=== PATIENT | female | born 1930 | race Caucasian/White ===

== ENCOUNTER 2016-12-14 14:42 | Inpatient (IN) | payer MEDICARE, OTHER ==
--- NOTE | 2016-12-14 15:28 | RAD ---
EXAM DESCRIPTION: XR CHEST 2 VIEWS CLINICAL HISTORY: FEVER COMPARISON: None Available. TECHNIQUE: Two-views of the chest. FINDINGS: Normal heart size. Atherosclerotic aorta. Patchy infiltrate in the right lung base laterally along the costophrenic angle. Minimal patchy opacity in the retrocardiac left lower lobe as well. No large effusions. Mild hyperinflation IMPRESSION: Bilateral patchy small infiltrates in the lung bases along of the right lateral lower lobe and retrocardiac left lower lobe Electronically signed by: Aly Flores MD 12/14/2016 15:27
--- NOTE | 2016-12-14 17:41 | HP ---
SUPERVISING PHYSICIAN: Sly Álvarez M.D. CHIEF COMPLAINT: Productive cough, shortness of breath and diarrhea. HISTORY OF PRESENT ILLNESS: Ms. Bray is an 86 year-old female patient that was seen in the clinic this past weekend for a cough. She was noted to have a positive Strep screen and was sent home with Amoxicillin. Three days after starting Amoxicillin she developed diarrhea and stopped her Amoxicillin. Her symptoms progressively worsened until she presented back to the clinic today and was found to have leukocytosis with a white count of 13.5 with a left shift. Chest x-ray per radiology interpretation indicated bilateral patchy infiltrates in the lung bases on the right lateral lower lobe and retrocardiac left lower lobe. The patient was showing saturations 93% on room air at the clinic but was having a more productive cough and increasing dyspnea with exertion. Given the patient's previous treatment for Strep throat having failed to continue with treatment plan and having failed outpatient treatment plan with radiographic studies indicating possible bilateral pneumonia and a leukocytosis with a left shift. The patient was directly admitted for treatment and evaluation. She was admitted in stable condition for bilateral pneumonia likely community acquired complicated by diarrhea and dehydration. PAST MEDICAL HISTORY: 1. Hypertension. 2. Multiple skin cancers. 3. Depression and anxiety. 4. Recent positive Streptococcal pharyngitis failing to complete treatment. 5. Mild dementia. PAST SURGICAL HISTORY: 1. Appendectomy. 2. Cataracts bilateral. CURRENT MEDICATIONS: No chronic home medications listed. Only medication is the recent Amoxicillin 500 mg every 12 hours for 10 days, completed only 4 days of therapy. ALLERGIES: NO KNOWN DRUG ALLERGIES. FAMILY HISTORY: Significant for father from myocardial infarction. Mother is from pancreatic cancer. SOCIAL HISTORY: The patient is a retired homemaker. She is . She lives in [place]. She smoked at a young age, but quit smoking in 1959 and she admits that she drinks alcohol on a social basis, mainly wine and Margaritas with meals. REVIEW OF SYSTEMS: CONSTITUTIONAL: Notes some chills but denies any fever. She does have some fatigue and has noted some unintentional weight loss over the last week of approximately 5 pounds since diarrhea started. HEENT: As noted in the History of Present Illness, positive for Streptococcal pharyngitis treated with Amoxicillin. Denies any nasal congestion or headaches. RESPIRATORY: Positive for productive cough and some exertional dyspnea. CARDIOVASCULAR: Denies any chest pain, palpitation or syncopal episodes. GASTROINTESTINAL: Negative for any constipation but does have currently diarrhea after starting Amoxicillin but has no nausea or vomiting. GENITOURINARY: Denies any dysuria, increased frequency or other urinary symptoms. NEUROLOGIC: Denies any ataxia, headaches, any weaknesses. No syncopal episodes. Does have a history of mild dementia. PHYSICAL EXAMINATION: VITAL SIGNS: In the clinic, temperature 98.7, pulse 93, blood pressure 116/70, respirations 18, pulse 93, O2 sat showing 93% on room air at rest. Admission weight 130 pounds. GENERAL: The patient appears well nourished. She does appear ill-appearing but is in no acute distress and is alert and oriented. HEENT: Tympanic membranes are clear bilaterally. Oropharynx is pink but posterior pharynx is notably erythematous with a strawberry-appearing tongue posteriorly, but there are no lesions noted. Tonsils appear within normal limits. NECK: No jugular venous distention. There is bilateral cervical adenopathy noted on palpation. CHEST: Lungs are diminished towards the bases bilaterally with just some faint coarse breath sounds bilaterally, but no rhonchi or wheezing or rales are noted. CARDIOVASCULAR: Regular rate and rhythm without appreciable murmurs, gallops, or rubs. ABDOMEN: Soft with just some mild tenderness towards the left lower quadrant, but no rebound tenderness. Bowel sounds are present. EXTREMITIES: No clubbing, cyanosis or edema. NEUROLOGIC: She is alert and oriented times three. Cranial nerves II-XII are grossly intact. Facial features are symmetrical. Extraocular movements are within normal limits. There is no nystagmus noted. There are no detectable neurological or motor deficits. The patient was ambulatory with no obvious ataxia. LABORATORY: White count showed 13.6, hemoglobin and hematocrit 13.3 and 44.1, platelet count 145,000. Differential did show a left shift. Chemistries show sodium 134, potassium 3.0, chloride 97, carbon dioxide 29, BUN 8, creatinine 0.65, glucose 114. Liver function showed all to be within normal limits, except for just some mildly elevated total bilirubin. Urinalysis showed positive blood and a small amount of leukocyte esterase on dipstick with microscopic exam revealing 10 to 20 WBCs, 10 to 20 RBCs, 3 to 5 epithelials and 2+ bacteria. Lactic acid is pending. Stool cultures, occult bloods are pending as well as stool leukocytes. MICROBIOLOGY: Blood cultures are pending times 2. Urine culture is pending. Sputum culture pending. RADIOLOGY: Chest x-ray two view per radiology interpretation in the clinic prior to admission showed bilateral patchy infiltrates in the lung bases along on the right lower lobe as well as the retrocardiac left lower lobe. ASSESSMENT: 1. Acute bilateral pneumonia community acquired having failed treatment plan for a Streptococcal pharyngitis with being treated with Amoxicillin. 2. Leukocytosis likely secondary to underlying bilateral pneumonia with left shift noted. 3. Recent Streptococcal pharyngitis treated with Amoxicillin failing to continue with treatment plan. 4. Persistent diarrhea possibly secondary to antibiotic therapy versus viral gastroenteritis versus complications from recent Streptococcal pharyngitis. 5. Mild electrolyte imbalance with mild hypokalemia and mild hyponatremia likely secondary to persistent diarrhea. 6. Moderate dehydration secondary to persistent diarrhea. 7. Hypertension. 8. History of depression and anxiety. 9. Urinary tract infection with cultures pending. PLAN: The patient was directly admitted to the hospital from the clinic with concerning worsening bilateral pneumonia community acquired having recently been treated for a positive Streptococcal pharyngitis but failing to respond to treatment plan after failing to continue with full treatment course. Will continue antibiotic therapy at this point to be parenterally with Rocephin and Azithromycin. Treatment for the pharyngitis as well as urinary tract infection should be good coverage with Azithromycin and Rocephin, therefore will not add any additional medications. Will plan to do stool studies to rule out possible Clostridium Difficile and also include occult blood. I will start her on IV fluids to help with the dehydration. She will be started on normal saline with 40 of potassium to run at 80 an hour. She will be provided DuoNeb breathing treatments q.i.d. with p.r.n. Albuterol as well as aggressive pulmonary hygiene , including incentive spirometry. She is not demonstrating and wheezing and has no significant history of chronic obstructive pulmonary disease, therefore we will not start any corticosteroids at this point. Anticipate length of stay to be 2 to 3 days pending reevaluation with radiographic studies in the morning and stool studies along with repeat CBC and BMP. Will continue to follow the patient closely until discharge at which time the patient will need close clinical followup in the outpatient setting with her primary care physician at [facility]. #[id number] [facility]
[2016-12-14] MEDS ORDERED: SODIUM CHLORIDE 0.9% (FLUSH) 10 ML SYG IV PRN (18:02)
[2016-12-14] MEDS ORDERED: ALBUTEROL SULFATE 2.5 MG/3 ML VIAL NEB PRN (18:02)
[2016-12-14] MEDS ORDERED: ACETAMINOPHEN 325 MG TAB PO PRN (18:02)
[2016-12-14] MEDS ORDERED: MAGNESIUM HYDROXIDE 30 ML UD PO PRN (18:02)
[2016-12-14] MEDS ORDERED: IV SET AND CAP CHANGE INJ INJ SCH (18:30)
[2016-12-14] MEDS ORDERED: AZITHROMYCIN IV 500 MG in SODIUM CHLORIDE 0.9% 250ML 250 ML IVPB SCH (18:30)
[2016-12-14] MEDS ORDERED: SODIUM CHL 0.9% 50ML MIN-BAG+ 50 ML IVPB ONE (18:55)
[2016-12-14] MEDS ORDERED: cefTRIAXone SODIUM 1 GM VIAL ONE (18:56)
[2016-12-14] MEDS: KCL 40MEQ/NS 1,000 ML IVS PRN (18:58)
[2016-12-14] MEDS: cefTRIAXone SODIUM 1 GM in SODIUM CHL 0.9% 50ML MIN-BAG+ 50 ML IVPB SCH (18:59)
[2016-12-14] MEDS ORDERED: SODIUM CHLORIDE 0.9% 250ML 250 ML ONE (20:11)
[2016-12-14] MEDS ORDERED: AZITHROMYCIN IV 500 MG VIAL IVPB ONE (20:12)
--- NOTE | 2016-12-14 20:43 | PCM.CORE ---
Physician DVT/VTE - Nurse DVT Assessment & Total Each Risk Factor Represents 3 Points: Age over 75 years Each Risk Factor is 1 Point: Serious Lung disease (pnemonia <1month, COPD, emphysema,etc) DVT Assessment Score: 4 - 5 or more Very High Risk Treatments: Early Ambulation *, Sequential Compression Device Pharmacological: Enoxaparin 40mg SQ Daily
[2016-12-14] MEDS: ENOXAPARIN SODIUM 40 MG/0.4 ML SYG SUBCU SCH (21:38)
--- NOTE | 2016-12-15 07:28 | RAD ---
Clinical History : Pneumonia , MAIN Exam : PA and lateral views of the chest 12/15/2016 7:00 AM LANGUAGE TEACHER Comparisons : PA and lateral views of the chest Findings : There is stable retrocardiac airspace disease with small bilateral pleural effusions. There are emphysematous changes throughout the lungs bilaterally. The heart is stable in size. The mediastinal contours are normal in appearance. There are vascular calcifications along the aortic arch. The thoracic spine is age appropriate. The shoulders are unremarkable. Limited evaluation of the upper abdomen demonstrates no gross abnormalities. Impression: 1. Bilateral pleural effusions with retrocardiac airspace disease. 2. Stable emphysema.. Electronically signed by: Stewart Rosas MD 12/15/2016 7:28 AM LANGUAGE TEACHER
[2016-12-15] MEDS: IPRATROPIUM/ALBUTEROL 3 ML VIAL NEB SCH ×4 (09:10→22:50)
[2016-12-15] MEDS: KCL 40MEQ/NS 1,000 ML IVS PRN (15:21)
[2016-12-15] MEDS ORDERED: SODIUM CHL 0.9% 50ML MIN-BAG+ 50 ML IVPB ONE (17:07)
[2016-12-15] MEDS ORDERED: cefTRIAXone SODIUM 1 GM VIAL ONE (17:07)
[2016-12-15] MEDS: cefTRIAXone SODIUM 1 GM in SODIUM CHL 0.9% 50ML MIN-BAG+ 50 ML IVPB SCH (19:06)
[2016-12-15] MEDS ORDERED: SODIUM CHLORIDE 0.9% 250ML 250 ML ONE (19:56)
[2016-12-15] MEDS ORDERED: AZITHROMYCIN IV 500 MG VIAL IVPB ONE (19:57)
[2016-12-15] MEDS ORDERED: AZITHROMYCIN IV 500 MG in SODIUM CHLORIDE 0.9% 250ML 250 ML IVPB SCH (20:00)
[2016-12-15] MEDS: SODIUM CHLORIDE 0.9% (FLUSH) 10 ML SYG IV SCH (20:30)
[2016-12-15] MEDS: ENOXAPARIN SODIUM 40 MG/0.4 ML SYG SUBCU SCH (20:54)
--- NOTE | 2016-12-15 21:32 | PN ---
DATE: 12/15/16 SUPERVISING PHYSICIAN: Sly Álvarez M.D. SUBJECTIVE: The patient is doing well this morning. She is visiting with friends and family. Appetite has been good. She still has a cough that is productive, but has less shortness of breath. She remains afebrile. OBJECTIVE: VITAL SIGNS: T max 97.9, pulse 72, blood pressure 120/66, respirations 18, O2 sat showing 95% on nasal cannula at rest on 1 liter. I's and O's show a positive balance of 585 with 1485 in, 900 out. Weight 60.3 kg. CHEST: Lungs continue to be diminished towards the bases with continued coarse breath sounds mostly on the right compared to the left, but there is no wheezing or rales noted. HEART: Regular rate and rhythm. ABDOMEN: Soft, non- tender. Positive bowel sounds. EXTREMITIES: No clubbing, cyanosis or edema. NEUROLOGIC: She is alert and oriented times three. LABORATORY: White count now has normalized at 7.5 from admission of 13.6, hemoglobin 11.6, hematocrit 34.3, platelet count 124,000. Differential now shows to be within normal limits. Chemistries show a mildly low potassium at 3.1 improved from admission with BUN 8, creatinine 0.53, glucose 92, calcium 7.9. MICROBIOLOGY: Sputum culture preliminary shows need for re-incubation. Blood cultures remain negative at 24 hours. Stool studies to include Clostridium Difficile toxin A and B was negative. Stool culture is pending and stool leukocytes showed positive for leukocytes. Urine culture preliminary shows a presumptive Escherichia coli with a colony count between 40,000 to 50,000. RADIOLOGY: Chest x-ray shows bilateral pleural effusions with a retrocardiac airspace disease and stable emphysema per radiology interpretation. ASSESSMENT: 1. Acute bilateral pneumonia community acquired having failed treatment plan after Streptococcal pharyngitis infection having been treated with Amoxicillin showing radiographic studies for concerns for pneumonia bilaterally. 2. Leukocytosis likely secondary to underlying bilateral pneumonia with a left shift noted, now resolved after treatment started with Rocephin and Azithromycin. 3. Recent Streptococcus pharyngitis having been treated with Amoxicillin failing to continue with treatment plan. 4. Persistent diarrhea most likely secondary to early antibiotic therapy versus a viral gastroenteritis with stool studies showing positive leukocytes but negative for Clostridium Difficile and stool cultures are currently pending with the patient having a recent Streptococcal pharyngitis infection. 5. Mild electrolyte imbalance with continued mild hypokalemia although improved after IV therapy with resolution of the hyponatremia most likely secondary to her persistent diarrhea. 6. Moderate dehydration secondary to persistent diarrhea. 7. Hypertension. 8. History of depression and anxiety. 9. Urinary tract infection with culture results showing preliminary presumptive Escherichia coli with the patient being on Rocephin and Azithromycin. PLAN: Will continue with antibiotic therapy to include Rocephin and Azithromycin for treatment of underlying pneumonia as well as her pharyngitis and urinary tract infection awaiting final culture results of both sputum and urine. She is doing clinically better and is taking adequate p.o. fluids, therefore we will go ahead and saline lock her later today. Will continue to monitor her stool cultures. Will continue with aggressive pulmonary hygiene to include DuoNeb treatments and incentive spirometry. Anticipate possible discharge tomorrow. Until then, will continue to monitor the patient closely and treat appropriately. #[id number] [facility]
[2016-12-15 23:33] VITALS: TEMP 98.4
[2016-12-16 03:26] VITALS: BP 169/85
[2016-12-16] MEDS ORDERED: SODIUM CHLORIDE 0.9% 10 ML VIAL IV PRN (07:54)
[2016-12-16] MEDS: IPRATROPIUM/ALBUTEROL 3 ML VIAL NEB SCH (09:15)
[2016-12-16] MEDS: SODIUM CHLORIDE 0.9% (FLUSH) 10 ML SYG IV SCH (09:19)
[2016-12-16] MEDS ORDERED: LISINOPRIL 10 MG TAB PO SCH (09:30)
--- NOTE | 2016-12-16 11:06 | RAD ---
PROCEDURE: Chest,2 Views CLINICAL HISTORY: pneumonia INDICATION: Same as above COMPARISON: December 15, 2016 TECHNIQUE: PA and and lateral chest radiographs were obtained. FINDINGS: Note is again made of small bilateral pleural effusions and presence of mild discoid atelectasis/infiltrate in the right lower lobe of the lung, both findings unchanged There is no pneumothorax The cardiomediastinal silhouette is stable IMPRESSION: Note is again made of small bilateral pleural effusions and presence of mild discoid atelectasis/infiltrate in the right lower lobe of the lung, both findings unchanged Place of interpretation: Teleradiology. Electronically signed by: Luther Lazar MD 12/16/2016 11:06 AM PARTS SALES MANAGER
[2016-12-16 12:45] VITALS: O2SAT 95
--- NOTE | 2016-12-18 11:06 | DS ---
SUPERVISING PHYSICIAN: Sly Álvarez MD DISCHARGE DIAGNOSIS: 1. Acute bilateral pneumonia, community acquired, having failed treatment plan for a Streptococcal pharyngitis having been treated with Amoxicillin with radiographic studies showing concern for pneumonia bilaterally. 2. Leukocytosis, likely secondary to underlying bilateral pneumonia with left shift noted and resolved with treatment that was started with Rocephin and azithromycin. 3. Recent Streptococcal pharyngitis treated with Amoxicillin failing to continue with treatment plan secondary to diarrhea after starting Amoxicillin. 4. Persistent diarrhea, secondary to antibiotic therapy, less likely viral gastroenteritis with stool studies showing only positive leukocytes, but negative for Clostridium difficile and stool cultures showing reduced gilberto with heavy growth of yeast with the patient having been treated for the recent Streptococcal pharyngitis infection. 5. Mild electrolyte imbalance with continued mild hypokalemia, showing improvement with IV therapy with resolution of hyponatremia, likely secondary to her persistent diarrhea. 6. Moderate dehydration secondary to persistent diarrhea. 7. Hypertension. 8. History of depression and anxiety. 9. Urinary tract infection with culture results showing Escherichia coli species that was pansensitive with the patient be on Rocephin since admission. HISTORY OF PRESENT ILLNESS: Ms. Bray is an 86 year-old female patient that was seen in the clinic the weekend before admission for a cough. She was noted to have a positive Strep screen and was sent home with Amoxicillin. Three days after starting Amoxicillin she developed diarrhea and stopped her Amoxicillin. Her symptoms progressively worsened until she presented back to the clinic on the day of admission and was found to have leukocytosis with a white count of 13.5 with a left shift. Chest x-ray per radiology interpretation indicated bilateral patchy infiltrates in the lung bases on the right lateral lower lobe and retrocardiac left lower lobe. The patient was showing saturations 93% on room air at the clinic, but was having a more productive cough and increasing dyspnea with exertion. Given the patient' s previous treatment for Strep throat having failed to continue with treatment plan and having failed outpatient treatment plan with radiographic studies indicating possible bilateral pneumonia and a leukocytosis with a left shift, the patient was directly admitted for treatment and evaluation. She was admitted in stable condition for bilateral pneumonia, likely community acquired , complicated by diarrhea and dehydration. LABORATORY: White count on admission was elevated at 13.6, however, normalized and at time of discharge was 4.7. Hemoglobin and hematocrit stabilized at 11.7 and 35.4 at time of discharge. Platelet count was normal at 144,000. Initially on admission, she did show a left shift. This resolved prior to discharge after initiation of antibiotics. Chemistries on admission did show mild electrolyte derangement with sodium 134, potassium 3.0. Carbon dioxide 29 , BUN 8, creatinine 0.65. Liver functions were all within normal limits, but slightly elevated bilirubin of 1.2. At time of discharge, she did continue to have a mild hypokalemia with potassium 3.2. BUN and creatinine were less than 5 and 0.52 for creatinine. Urine dipstick on admission did show moderate blood , small amount of leukocyte esterase, but microscopic exam revealed 10 to 20 RBCs, WBCs with 2+ bacteria and only 3 to 5 epithelials. MICROBIOLOGY: Flu swab by PCR was negative for both A and B. Sputum cultures completed show normal gilberto at 48 hours. Blood cultures remained negative after four days. Stool workup included C. difficile toxin A and B that was negative. Stool leukocytes did positive leukocytes, but stool cultures showed reduced gilberto with just heavy growth of yeast. RADIOLOGY: Initial chest x-ray on admission showed bilateral patchy small infiltrates in the lung base along the right lower lobe and retrocardiac left lower lobe. Followup x-ray at time of discharge showed again small bilateral pleural effusions with presence of discoid atelectasis infiltrate in the right lower lobe of both lungs, but unchanged. HOSPITAL COURSE: Ms. Bray was noted on 12/14/16 as noted for bilateral pneumonia. She was started on antibiotics that included azithromycin and Rocephin. She was also started on IV fluids for some mild dehydration. She progressed well with breathing treatments and aggressive pulmonary hygiene. She remained stable and was felt well enough to continue in outpatient setting once cultures were all confirmed and antibiotic therapy was appropriately targeted. PLAN: Ms. Bray was discharged to have close clinical followup with her primary care provider, Dr. Kelly, in seven days or sooner. She was instructed to call Dr. Kelly's office to schedule appointment. She was to start new medications on discharge as instructed and encouraged to increase fluids. She was to keep a blood pressure log and to take it with her to Dr. Kelly's office for followup. She was to increase activities physically as tolerated and return to the hospital should she have failure of improvement or worsening of her symptoms. She was discharged in good and stable condition. DISCHARGE MEDICATIONS: 1. Azithromycin 500 mg for 3 days. 2. Guaifenesin 600 mg twice daily. 3. Cefdinir 300 mg twice daily for 5 days. 4. Lisinopril 20 mg daily, #30. 5. Albuterol inhaler 2 puffs inhaled q.4h. as needed. All other medications prior to admission were resumed. #[id number] [facility]
--- NOTE | 2016-12-24 00:18 | RAD ---
Clinical History : Pneumonia , MAIN Exam : PA and lateral views of the chest 12/15/2016 7:00 AM PAINTING SUPERVISOR Comparisons : PA and lateral views of the chest Findings : There is stable retrocardiac airspace disease with small bilateral pleural effusions. There are emphysematous changes throughout the lungs bilaterally. The heart is stable in size. The mediastinal contours are normal in appearance. There are vascular calcifications along the aortic arch. The thoracic spine is age appropriate. The shoulders are unremarkable. Limited evaluation of the upper abdomen demonstrates no gross abnormalities. Impression: 1. Bilateral pleural effusions with retrocardiac airspace disease. 2. Stable emphysema.. Electronically signed by: Stewart Rosas MD 12/15/2016 7:28 AM PAINTING SUPERVISOR
--- NOTE | 2016-12-24 00:25 | RAD ---
PROCEDURE: Chest,2 Views CLINICAL HISTORY: pneumonia INDICATION: Same as above COMPARISON: December 15, 2016 TECHNIQUE: PA and and lateral chest radiographs were obtained. FINDINGS: Note is again made of small bilateral pleural effusions and presence of mild discoid atelectasis/infiltrate in the right lower lobe of the lung, both findings unchanged There is no pneumothorax The cardiomediastinal silhouette is stable IMPRESSION: Note is again made of small bilateral pleural effusions and presence of mild discoid atelectasis/infiltrate in the right lower lobe of the lung, both findings unchanged Place of interpretation: Teleradiology. Electronically signed by: Luther Lazar MD 12/16/2016 11:06 AM AUTOMOTIVE TIRE TESTING SUPERVISOR
== END 2016-12-16 11:41 | disposition home or self-care (01) | DRG 194 ==
LOC: GMA 14:42 → MS 17:38
PROVIDERS: ADMIT Family Medicine; ATTEND Nurse Practitioner Family
DX: J18.9 Pneumonia, unspecified organism (principal); N39.0 Urinary tract infection, site not specified; E87.1 Hypo-osmolality and hyponatremia; J02.0 Streptococcal pharyngitis; R19.7 Diarrhea, unspecified; E87.6 Hypokalemia; E86.0 Dehydration; I10 Essential (primary) hypertension; F32.9 Major depressive disorder, single episode, unspecified; F41.9 Anxiety disorder, unspecified; B96.20 Unspecified Escherichia coli [E. coli] as the cause of diseases classified elsewhere; F03.90 Unspecified dementia, unspecified severity, without behavioral disturbance, psychotic disturbance, mood disturbance, and anxiety; Z87.891 Personal history of nicotine dependence

== ENCOUNTER → 2017-03-26 | Outpatient (CLI) | payer MEDICARE, OTHER | END | disposition home or self-care (01) | LOC: GMAB 10:05 | PROVIDERS: ATTEND Family Medicine | DX: I10 Essential (primary) hypertension (principal) ==

== ENCOUNTER → 2017-05-07 | Outpatient (CLI) | payer MEDICARE, OTHER ==
--- NOTE | 2017-05-08 14:01 | US ---
EXAM DESCRIPTION: Venous, lower Extremity RT CLINICAL HISTORY: PAIN IN RIGHT LEG COMPARISON: None Available. TECHNIQUE: Two -dimensional and doppler sonographic evaluation of the deep venous system of the right lower extremity. FINDINGS: Doppler evaluation shows normal color flow and normal phasicity and augmentation of the right common femoral vein, femoral vein, popliteal vein, greater saphenous vein, peroneal, and posterior tibial vein. The right lower extremity deep veins showed normal occlusion with transducer pressure. Two-dimensional survey showed no echogenic thrombus within these veins. IMPRESSION: 1. Duplex ultrasound evaluation of the right lower extremity deep venous system showing no evidence of thrombosis or embolism. Electronically signed by: Jonathan Muller MD 05/08/2017 1:59 PM CDT Workstation: [id number]
--- NOTE | 2017-05-08 14:05 | US ---
EXAM DESCRIPTION: Venous, lower Extremity LT CLINICAL HISTORY: PAIN IN LEFT LEG COMPARISON: None Available. TECHNIQUE: Two -dimensional and doppler sonographic evaluation of the deep venous system of the left lower extremity. FINDINGS: Doppler evaluation shows normal color flow and normal phasicity and augmentation of the left common femoral vein, femoral vein, popliteal vein, greater saphenous vein, peroneal, and posterior tibial vein. The left lower extremity deep veins showed normal occlusion with transducer pressure. Two-dimensional survey showed no echogenic thrombus within these veins. IMPRESSION: 1. Duplex ultrasound evaluation of the left lower extremity deep venous system showing no evidence of thrombosis or embolism. Electronically signed by: Jonathan Muller MD 05/08/2017 2:03 PM CDT Workstation: [id number]
== END ==
LOC: GMAB 10:46
PROVIDERS: ATTEND Family Medicine
DX: M79.661 Pain in right lower leg (principal); M79.662 Pain in left lower leg; R41.81 Age-related cognitive decline; R41.9 Unspecified symptoms and signs involving cognitive functions and awareness

== ENCOUNTER → 2017-06-04 | Outpatient (CLI) | payer MEDICARE, OTHER | END | disposition home or self-care (01) | LOC: GMAB 14:16 | PROVIDERS: ATTEND Family Medicine | DX: F03.90 Unspecified dementia, unspecified severity, without behavioral disturbance, psychotic disturbance, mood disturbance, and anxiety (principal); M79.661 Pain in right lower leg; M79.662 Pain in left lower leg ==

== ENCOUNTER → 2017-07-11 | Outpatient (CLI) | payer MEDICARE, OTHER ==
--- NOTE | 2017-07-11 11:07 | MRI ---
EXAM DESCRIPTION: Lumbar Spine w/o Contrast CLINICAL HISTORY: 86 years, Female, IDIOPATHIC PROGRESSIVE NEUROPATHY , bilateral calf pain and weakness COMPARISON: FINDINGS: Bone marrow signal heterogeneous but not worrisome. Large Schmorl's node inferiorly at L1. Smaller Schmorl's nodes are present at L2, L3, L4. Conus terminates at L1. Mild right lumbar curvature is probably degenerative. Mild bulging disc noted in the lower thoracic spine on the sagittal images. This includes T10-11 T11-12 and T12-L1. L1-2, mild bulging disc extends into the exit foramen bilaterally. Facet degenerative change. At L2-3 bulging disc extends adjacent foramen bilaterally, more on the right with slight foraminal narrowing. Mild facet degenerative change. At L3-4 narrowing with bulging disc. About 1 mm anterolisthesis set degenerative change. Moderate foraminal narrowing bilaterally, more on the right. The bulging disc however does appear to impinge slightly on the exiting left L3 root. At L4-5 about 5 mm of anterolisthesis with probable bilateral pars defects. Diffuse bulging disc flattens the central aspect the thecal sac. Bilateral foraminal narrowing. Facet degenerative change with left lateral recess encroachment. At L5-S1 bulging disc asymmetric to the right. Slight flattening the thecal sac and narrowing the right exit foramen. IMPRESSION: 1. Anterolisthesis L4-5 with diffuse bulging disc. Bilateral foraminal narrowing. Left lateral recess encroachment 2. Narrowing L3-4 with anterolisthesis. Moderate foraminal narrowing bilaterally, more on the right. Probable slight impingement on the exiting left L3 root 3. Other mild disc changes present as discussed above. Electronically signed by: Willy Rae MD 07/11/2017 11:05 AM CDT
== END | disposition home or self-care (01) ==
LOC: MRI 10:44
PROVIDERS: ATTEND Family Medicine
DX: G60.3 Idiopathic progressive neuropathy (principal)

== ENCOUNTER → 2018-01-20 | Outpatient (CLI) | payer MEDICARE, OTHER | LOC: GMAB 18:38 | PROVIDERS: ATTEND Family Medicine | DX: G60.3 Idiopathic progressive neuropathy (principal); E53.8 Deficiency of other specified B group vitamins; I10 Essential (primary) hypertension ==

== ENCOUNTER → 2018-09-30 | Outpatient (CLI) | payer MEDICARE, OTHER | LOC: GMAE 14:59 | PROVIDERS: ATTEND Family Medicine | DX: G30.9 Alzheimer's disease, unspecified (principal) ==

== ENCOUNTER 2018-11-02 08:37 | Emergency (ER) | payer MEDICARE, OTHER ==
[2018-11-02 08:56] VITALS: TEMP 98
--- NOTE | 2018-11-02 09:15 | ED.PDOC ---
History of Present Illness - General Chief Complaint: Blood Pressure Problem Stated Complaint: Blood pressure, weak Time Seen by Provider: 11/02/18 09:06 Source: patient, family Exam Limitations: no limitations - History of Present Illness Initial Comments: Patient presents after home health measured a blood pressure of 88 systolic. When she got out of bed this morning, she was sweaty and needed from her daughter getting her to the door. She has been treated with Keflex for almost two days for a wound on her leg. No other complaints. Timing/Duration: 1-3 hours Severity: mild Improving Factors: nothing Worsening Factors: nothing Associated Symptoms: denies symptoms Allergies/Adverse Reactions: Allergies NO KNOWN ALLERGY Allergy (Verified 11/02/18 08:52) Home Medications: Ambulatory Orders Aspirin [Baby Aspirin] 81 mg PO DAILY 11/02/18 Cephalexin 500 mg PO QID 11/02/18 Cyanocobalamin [Vitamin B-12] 1,000 mcg PO DAILY 11/02/18 Gabapentin 300 mg PO BEDTIME 11/02/18 Lisinopril 20 mg PO DAILY 11/02/18 Memantine HCl-Donepezil HCl [Namzaric 28-10 mg] 10 mg PO DAILY 11/02/18 Mirtazapine 7.5 mg PO BEDTIME 11/02/18 Nebivolol HCl [Bystolic] 5 mg PO DAILY 11/02/18 Review of Systems - Review of Systems Constitutional: States: no symptoms reported EENTM: States: no symptoms reported Respiratory: States: no symptoms reported Cardiology: States: see HPI Gastrointestinal/Abdominal: States: no symptoms reported Genitourinary: States: no symptoms reported Musculoskeletal: States: no symptoms reported Skin: States: no symptoms reported Neurological: States: no symptoms reported Endocrine: States: no symptoms reported Hematologic/Lymphatic: States: no symptoms reported Past Medical History (General) - Patient Medical History Hx Seizures: No Hx Stroke: No Hx Asthma: No Hx of COPD: No Hx Congestive Heart Failure: No Hx Pacemaker: No Hx Hypertension: Yes Hx Diabetes: No Hx MRSA: No Surgical History: appendectomy - Vaccination History Hx Influenza Vaccination: Yes - 2018 Hx Pneumococcal Vaccination: - unknown - Social History Hx Tobacco Use: Yes - Quit 1988 Hx Alcohol Use: No Hx Substance Use: No Hx Physical Abuse: No Hx Emotional Abuse: No Family Medical History - Family History Father Living Status: Hx Cardiac Disease: Yes - heart attack Physical Exam - Physical Exam General Appearance: Alert Eye Exam: bilateral normal Ears, Nose, Throat: normal ENT inspection Neck: non-tender, full range of motion, supple Respiratory: lungs clear, normal breath sounds Cardiovascular/Chest: normal peripheral pulses, regular rate, rhythm, no edema Gastrointestinal/Abdominal: normal bowel sounds, non tender, soft Back Exam: normal inspection, no CVA tenderness Extremity: non-tender, no pedal edema Neurologic: no motor/sensory deficits, alert, normal mood/affect, oriented x 3 Skin Exam: normal color Lymphatic: no adenopathy Progress - Progress Progress: 11/02/18 10:36 BP wnl. Patient was given one liter NS IV. No signs of dehydration. Likely vasovagal. Wound on the right lower leg looked like it was healing well. No signs of sepsis. Patient was encouraged to drink more fluids and when she stands up, to do it slowly so her blood pressure can adjust. I advised her to visit her PCP again in the next 5 days to look at the wound. Care instructions given. E.R. warnings given. Questions were elicited and answered. Patient voiced understanding and agreement with the plan. Departure - Departure Clinical Impression: Near syncope Disposition: Discharge to Home or Self Care Condition: Good Departure Forms: ED Discharge - Pt. Copy, Patient Portal Self Enrollment Instructions: Near Fainting (DC) Activity: increase activity as tolerated Referrals: MARKOS PARKS MD [Primary Care Provider] - 1-2 Weeks Home Medications: Ambulatory Orders Aspirin [Baby Aspirin] 81 mg PO DAILY 11/02/18 Cephalexin 500 mg PO QID 11/02/18 Cyanocobalamin [Vitamin B-12] 1,000 mcg PO DAILY 11/02/18 Gabapentin 300 mg PO BEDTIME 11/02/18 Lisinopril 20 mg PO DAILY 11/02/18 Memantine HCl-Donepezil HCl [Namzaric 28-10 mg] 10 mg PO DAILY 11/02/18 Mirtazapine 7.5 mg PO BEDTIME 11/02/18 Nebivolol HCl [Bystolic] 5 mg PO DAILY 11/02/18 Additional Instructions: Continue with your current medications. Drink lots of fluids. When you stand up, do it slowly. If you feel faint or sweaty, sit back down for several minutes. Return to the E.R. if you faint or feel like fainting or for chest pain or shortness of breath. See your regular doctor this week regarding your leg wound.
[2018-11-02] MEDS ORDERED: SODIUM CHLORIDE 0.9% 1000ML 1,000 ML IVS ONE (09:16)
[2018-11-02 10:37] VITALS: BP 148/76; O2SAT 96
== END 2018-11-02 11:02 | disposition home or self-care (01) ==
LOC: ER 08:37
DX: R55 Syncope and collapse (principal); I10 Essential (primary) hypertension; Z87.891 Personal history of nicotine dependence; Z79.82 Long term (current) use of aspirin; Z79.899 Other long term (current) drug therapy
CPT/HCPCS: 36415; 80053; 81001; 83605; 85025; J7030

== ENCOUNTER → 2019-06-09 | Outpatient (CLI) | payer MEDICARE, OTHER | LOC: NC 08:36 | PROVIDERS: ATTEND Family Medicine | DX: E03.9 Hypothyroidism, unspecified (principal); E78.5 Hyperlipidemia, unspecified; I10 Essential (primary) hypertension; G30.9 Alzheimer's disease, unspecified ==

== ENCOUNTER → 2019-06-17 | Outpatient (CLI) | payer MEDICARE, OTHER | LOC: GMAE 18:35 | PROVIDERS: ATTEND Family Medicine | DX: E53.8 Deficiency of other specified B group vitamins (principal) ==

== ENCOUNTER 2019-07-30 10:56 | Emergency (ER) | payer MEDICARE, OTHER ==
--- NOTE | 2019-07-30 11:48 | CT ---
EXAM DESCRIPTION: Cervical Spine CLINICAL HISTORY: Fall onto back of head, confusion COMPARISON: None available. TECHNIQUE: Axial noncontast CT of the cervical spine with coronal and sagittal reformats. This exam was performed according to our departmental dose-optimization program, which includes automated exposure control, adjustment of the mA and/or kV according to patient size and/or use of iterative reconstruction technique. FINDINGS: Cervical vertebral body heights are maintained. Trace anterolisthesis C4 on C5. No acute fracture or posttraumatic positional abnormality of the cervical spine. Mild disc space narrowing at C4-5. Moderate disc space narrowing C2-C4 and C5-C7. Mild to moderate facet hypertrophic and degenerative changes are seen most pronounced on the left at C3-C5 and on the right from C2 through C4. No high-grade spinal canal stenosis. Moderate right foraminal encroachment at C5-6 and to a lesser degree C3-4. Moderate calcifications of the carotid bulb are seen left greater than right. Lung apices are unremarkable. 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 No CT evidence of acute fracture or posttraumatic positional abnormality of the cervical spine. Electronically signed by: Ochoa Carmichael MD 07/30/2019 11:46 AM CDT
--- NOTE | 2019-07-30 11:49 | CT ---
EXAM DESCRIPTION: Head CLINICAL HISTORY: Fall onto back of head, confusion COMPARISON: None TECHNIQUE: Noncontrast transaxial CT images of the head are obtained from base to vertex. This exam was performed according to our departmental dose-optimization program, which includes automated exposure control, adjustment of the mA and/or kV according to patient size and/or use of iterative reconstruction technique. FINDINGS: The midline structures are not displaced. Sulci are age-appropriate. There are areas of decreased attenuation in the periventricular white matter and the white matter of the centrum semiovale. There is no evidence of mass, mass-effect, hydrocephalus, or acute intracranial hemorrhage. No abnormal extra axial fluid collection is seen. Moderate calcifications of the intracranial carotid and vertebral arteries. Bone windows show no evidence of depressed skull fracture. The visualized paranasal sinuses are unremarkable. IMPRESSION: 1. Age-appropriate atrophy with evidence of old small vessel ischemic type changes seen. 2. No acute abnormality is seen on noncontrast CT of the head. Electronically signed by: Ochoa Carmichael MD 07/30/2019 11:48 AM CDT
[2019-07-30 11:57] VITALS: BP 158/99; TEMP 98
--- NOTE | 2019-07-30 12:04 | ED.PDOC ---
History of Present Illness - General Chief Complaint: Trauma Stated Complaint: Dizziness after fall Time Seen by Provider: 07/30/19 11:07 Source: patient, RN notes reviewed, Vital Signs reviewed - History of Present Illness Initial Comments: Per patient and caregiver, patient was in suspended air chair which fell and collapsed onto floor. Deny LOC, passing out, presyncope, chest pain, SOB. [place] fine last night and per caregiver has been more confused this AM. Deny dizziness. Has been tolerating PO. Denies other symptoms. Occurred: yesterday Severity: mild Head Injury Location: occipital Method of Injury: fell Loss of Consciousness: no loss of consciousness Associated Symptoms: denies symptoms Allergies/Adverse Reactions: Allergies NO KNOWN ALLERGY Allergy (Verified 11/02/18 08:52) Home Medications: Ambulatory Orders Aspirin [Baby Aspirin] 81 mg PO DAILY 11/02/18 Cephalexin 500 mg PO QID 11/02/18 Cyanocobalamin [Vitamin B-12] 1,000 mcg PO DAILY 11/02/18 Gabapentin 300 mg PO BEDTIME 11/02/18 Lisinopril 20 mg PO DAILY 11/02/18 Memantine HCl-Donepezil HCl [Namzaric 28-10 mg] 10 mg PO DAILY 11/02/18 Mirtazapine 7.5 mg PO BEDTIME 11/02/18 Nebivolol HCl [Bystolic] 5 mg PO DAILY 11/02/18 Review of Systems - Review of Systems Constitutional: States: no symptoms reported EENTM: States: no symptoms reported Respiratory: States: no symptoms reported Cardiology: States: no symptoms reported Gastrointestinal/Abdominal: States: no symptoms reported Genitourinary: States: no symptoms reported Musculoskeletal: States: no symptoms reported, neck pain Skin: States: no symptoms reported Neurological: States: no symptoms reported, see HPI Endocrine: States: no symptoms reported Hematologic/Lymphatic: States: no symptoms reported Past Medical History (General) - Patient Medical History Hx Seizures: No Hx Stroke: No Hx Asthma: No Hx of COPD: No Hx Congestive Heart Failure: No Hx Pacemaker: No Hx Hypertension: Yes Hx Diabetes: No Hx MRSA: No Surgical History: appendectomy - Vaccination History Hx Influenza Vaccination: Yes - 2018 Hx Pneumococcal Vaccination: - unknown - Social History Hx Tobacco Use: Yes - Quit 1988 Hx Alcohol Use: No Hx Substance Use: No Hx Physical Abuse: No Hx Emotional Abuse: No Family Medical History - Family History Father Living Status: Hx Cardiac Disease: Yes - heart attack Physical Exam - Physical Exam General Appearance: Alert, Comfortable, No apparent distress Head Injury: other - Very small abrasion to occipital scalp. No bleeding, hematoma. 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 On reassessment, patient does not know date or year and per caregiver, she typically forgets the day. Unclear on year. Labs and further workup were offered but these were denied. 07/30/19 12:07 I advised them to come back for further evaluation if patient worsens. - EKG/XRAY/CT CT: head and C spine: without acute injury. Departure - Departure Clinical Impression: Head injury Time of Disposition: 12:08 Disposition: Discharge to Home or Self Care Condition: Fair Departure Forms: ED Discharge - Pt. Copy, Patient Portal Self Enrollment Diet: resume usual diet Activity: increase activity as tolerated Referrals: MARKOS PARKS MD [Primary Care Provider] - 1-2 Days Home Medications: Ambulatory Orders Aspirin [Baby Aspirin] 81 mg PO DAILY 11/02/18 Cephalexin 500 mg PO QID 11/02/18 Cyanocobalamin [Vitamin B-12] 1,000 mcg PO DAILY 11/02/18 Gabapentin 300 mg PO BEDTIME 11/02/18 Lisinopril 20 mg PO DAILY 11/02/18 Memantine HCl-Donepezil HCl [Namzaric 28-10 mg] 10 mg PO DAILY 11/02/18 Mirtazapine 7.5 mg PO BEDTIME 11/02/18 Nebivolol HCl [Bystolic] 5 mg PO DAILY 11/02/18 Comments: For fall and confusion
[2019-07-30 12:17] VITALS: O2SAT 94
== END 2019-07-30 12:23 | disposition home or self-care (01) ==
LOC: ER 10:56
DX: S09.90XA Unspecified injury of head, initial encounter (principal); S00.91XA Abrasion of unspecified part of head, initial encounter; M54.2 Cervicalgia; I10 Essential (primary) hypertension; Z87.891 Personal history of nicotine dependence; Z79.82 Long term (current) use of aspirin; Z79.899 Other long term (current) drug therapy; W07.XXXA Fall from chair, initial encounter; Y92.9 Unspecified place or not applicable

== ENCOUNTER → 2020-03-01 | Outpatient (CLI) | payer MEDICARE, OTHER | LOC: NC 15:33 | PROVIDERS: ATTEND Family Medicine | DX: I10 Essential (primary) hypertension (principal) ==

== ENCOUNTER → 2020-07-01 | Outpatient (CLI) | payer MEDICARE, OTHER | LOC: NC 10:53 | PROVIDERS: ATTEND Family Medicine | DX: R30.0 Dysuria (principal); I10 Essential (primary) hypertension; G30.9 Alzheimer's disease, unspecified; E03.9 Hypothyroidism, unspecified ==

== ENCOUNTER → 2020-08-10 | Outpatient (CLI) | payer MEDICARE, OTHER | LOC: NC 09:19 | PROVIDERS: ATTEND Family Medicine | DX: I10 Essential (primary) hypertension (principal); Z79.82 Long term (current) use of aspirin ==